=== PATIENT | female | born 1975 | race Caucasian/White ===

== ENCOUNTER 2021-02-20 09:09 | Day surgery (SDC) | payer BC, SELFPAY ==
[2021-02-18 10:32] LABS: BASOPHILS % (AUTO) 0.8 % (0.0-2.0); EOSINOPHILS # (AUTO) 0.2 K/uL (0-0.4); EOSINOPHILS % (AUTO) 4.2 % (0.0-4.0); HEMATOCRIT 39.9 % (36-48); HEMOGLOBIN 13.2 g/dL (12.0-16.0); LYMPHOCYTES # (AUTO) 1.5 K/uL (2.5-16.5); MEAN CORPUSCULAR HEMOGLOBIN 29 pg (27-31); MEAN CORPUSCULAR HGB CONC 33 g/dL (33-37); MEAN CORPUSCULAR VOLUME 87.2 fL (80-94); MONOCYTES # (AUTO) 0.5 K/uL (0.8-1.0); MONOCYTES % (AUTO) 8.8 % (1.7-9.3); NEUTROPHILS # (AUTO) 3.1 K/uL (1.8-7.7); NEUTROPHILS % (AUTO) 57.2 % (42.2-75.2); PLATELET COUNT (AUTO) 284 K/uL (140-450); RED BLOOD CELL COUNT(AUTO) 4.57 MIL/uL (4.20-5.40); RED CELL DISTRIBUTION WIDTH 12.8 % (11.6-13.7); WHITE BLOOD COUNT (AUTO) 5.3 K/uL (4.8-10.8)
[2021-02-18 10:39] LABS: CARBON DIOXIDE 29.9 mmol/L (21-32); CREATININE 0.7 mg/dL (0.6-1.3); POTASSIUM 3.9 mmol/L (3.5-5.1); TOTAL BILIRUBIN 0.3 mg/dL (0.0-1.0)
[~2021-02-20] VITALS: Ht 157.5 cm; Wt 62.2 kg
[2021-02-20] MEDS ORDERED: CLINDAMYCIN 600 MG in DEXTROSE 5% 50 ML IV SCH (10:00)
[2021-02-20] MEDS ORDERED: fentaNYL citrate 0.05 MG/ML VIAL ONE (11:53)
[2021-02-20] MEDS ORDERED: BUPIVACAINE-MPF 0.25% 30 ML VIAL INJ ONE (12:00)
[2021-02-20] MEDS ORDERED: LIDOCAINE 1% 500 MG/50 ML VIAL ONE (12:00)
[2021-02-20] MEDS ORDERED: SEVOFLURANE 250 ML BTL INH ONE (12:28)
[2021-02-20] MEDS ORDERED: MEPERIDINE 25 MG/ML SYR IVP PRN (12:50)
[2021-02-20] MEDS ORDERED: fentaNYL citrate 0.05 MG/ML VIAL IVP PRN (12:50)
[2021-02-20] MEDS ORDERED: diphenhydrAMINE 50 MG/ML VIAL IVP PRN (12:50)
[2021-02-20] MEDS ORDERED: LACTATED RINGERS 1,000 ML IV SCH (12:50)
[2021-02-20] MEDS ORDERED: HYDROmorphone 1 MG/ML AMP IVP PRN ×2 (12:50→13:15)
[2021-02-20] MEDS ORDERED: ONDANSETRON 4 MG/2 ML VIAL IVP PRN (12:50)
[2021-02-20] MEDS ORDERED: MORPHINE SULFATE 4 MG/ML SYR IV PRN (13:15)
[2021-02-20] MEDS ORDERED: MORPHINE SULFATE 2 MG/ML SYR IVP PRN (13:15)
[2021-02-20] MEDS ORDERED: HYDROcodone/APAP 5/325 MG 1 TAB TAB PO PRN (13:15)
[2021-02-20] MEDS ORDERED: ONDANSETRON 4 MG/2 ML VIAL IV PRN (13:15)
[2021-02-20] MEDS ORDERED: ONDANSETRON 4 MG/2 ML VIAL ONE (15:16)
[2021-02-20] MEDS ORDERED: GLYCOPYRROLATE 0.2 MG/ML VIAL ONE (15:16)
[2021-02-20] MEDS ORDERED: LIDOCAINE MPF 2% 100 MG/5 ML VIAL INJ ONE (15:17)
[2021-02-20] MEDS ORDERED: METOCLOPRAMIDE 10 MG/2 ML INJ VIAL ONE (15:17)
[2021-02-20] MEDS ORDERED: PROPOFOL 200 MG/20 ML VIAL IV ONE (15:17)
[2021-02-20] MEDS ORDERED: ROCURONIUM 50 MG/5 ML VIAL IV ONE (15:17)
[2021-02-20] MEDS ORDERED: DEXAMETHASONE 4 MG/ML VIAL ONE (15:17)
[2021-02-20] MEDS ORDERED: NEOSTIGMINE 1:1000 10 MG/10 ML VIAL ONE (15:17)
== END 2021-02-20 15:20 | disposition home or self-care (01) ==
LOC: MDS 09:09 → MMU 09:45 → MDS 15:20
PROVIDERS: ATTEND Surgery
DX: N63.21 Unspecified lump in the left breast, upper outer quadrant (principal); Z88.0 Allergy status to penicillin; Z79.01 Long term (current) use of anticoagulants; Z79.899 Other long term (current) drug therapy; Z20.822 Contact with and (suspected) exposure to COVID-19
CPT/HCPCS: 19120; 36415; 71045; 80053; 81025; 85025; 87426; J1100; J2001; J2405; J2704; J2710; J2765; J3010; J3490; J7060